=== PATIENT | male | born 1990 | race Hispanic/Latino ===

== ENCOUNTER → 2024-08-16 | Outpatient (CLI) | payer OTHER ==
[~2024-08-16] MED LIST: REGADENOSON 0.4 MG/5 ML PF SYG IVP ONE
--- NOTE | 2024-08-16 16:20 | HMCIMG ---
MR KNEE RIGHT WO HISTORY: Right knee pain COMPARISON: None TECHNIQUE: MRI of the right knee was performed utilizing multiple pulse sequences in axial, coronal and sagittal planes. Patient was not given contrast through intravenous route. FINDINGS: Small subchondral cyst formation is seen at the posterior aspect of the patella. No abnormal signal intensity is seen of the visualized bony structure. The anterior cruciate and posterior cruciate ligaments are grossly intact. The medial and lateral collateral ligaments are also intact. Quadriceps tendon and patellar tendon are within normal limits. There is intrasubstance tear involving the medial and lateral menisci. There is questionable subtle medial meniscal tear involving posterior horn with intra-articular extension. No evidence of Lieberman's cyst is seen. IMPRESSION: 1. There is intrasubstance tear involving the medial and lateral menisci. There is questionable subtle medial meniscal tear involving posterior horn with intra-articular extension.
== END | disposition home or self-care (01) ==
LOC: RAH 12:55 → EEVIPCON 12:55
PROVIDERS: ATTEND Physical Medicine & Rehabilitation
DX: S83.241A Other tear of medial meniscus, current injury, right knee, initial encounter (principal); S83.281A Other tear of lateral meniscus, current injury, right knee, initial encounter; M25.561 Pain in right knee; X58.XXXA Exposure to other specified factors, initial encounter; Y93.89 Activity, other specified; Y92.89 Other specified places as the place of occurrence of the external cause; Y99.8 Other external cause status
CPT/HCPCS: 73721; J2785